=== PATIENT | female | born 1935 | race African-American/Black ===

== ENCOUNTER 2023-11-09 20:59 | Emergency (ER) | payer MEDICARE, OTHER ==
[~2023-11-09] VITALS: Ht 162.6 cm; Wt 63.5 kg
[2023-11-09 23:00] LABS: BASOPHILS # (AUTO) 0.1 K/uL (0.0-0.2); BASOPHILS % (AUTO) 1.1 % (0.0-2.0); EOSINOPHILS # (AUTO) 0.2 K/uL (0.0-0.7); HEMATOCRIT 40 % (33-45); LYMPHOCYTES # (AUTO) 1.9 K/uL (0.8-4.8); MEAN CORPUSCULAR HEMOGLOBIN 29 PG (26.0-33.0); MEAN CORPUSCULAR HGB CONC 32 g/dl (31.0-36.0); MEAN CORPUSCULAR VOLUME 90 fL (82-100); MONOCYTES # (AUTO) 0.6 K/uL (0.1-1.30); MONOCYTES % (AUTO) 12.6 % (2.0-12.0); NEUTROPHILS # (AUTO) 2.1 K/uL (1.8-8.9); NEUTROPHILS % (AUTO) 43.3 % (43.0-81.0); PLATELET COUNT (AUTO) 228 K/uL (150-450); RED BLOOD CELL COUNT(AUTO) 4.47 MIL/uL (4.0-5.2); RED CELL DISTRIBUTION WIDTH 14.9 % (11.5-15.0)
[2023-11-09 23:11] LABS: INR 1.51 (0.91-1.10); PARTIAL THROMBOPLASTIN TIME 36.7 SEC (24.3-34.3); PROTHROMBIN TIME 15.6 SECS (9.2-11.1)
[2023-11-09 23:19] LABS: CALCIUM, SERUM 8.6 mg/dL (8.5-10.1); CARBON DIOXIDE 26 mmol/L (21-32); CHLORIDE 108 mmol/L (98-107); CREATININE 0.9 mg/dL (0.6-1.3); GLUCOSE 99 mg/dL (74-106); POTASSIUM 3.8 mmol/L (3.5-5.1); SODIUM SERUM 141 mmol/L (136-145); UREA NITROGEN, BLOOD 18 mg/dL (7-18)
[2023-11-09 23:37] LABS: ALANINE AMINOTRANSFERASE 23 U/L (12-78); ALBUMIN 3.1 g/dL (3.4-5.0); ALKALINE PHOSPHATASE 157 U/L (46-116); ASPARTATE AMINOTRANSFERASE 19 U/L (15-37); BILIRUBIN,DIRECT 0.1 mg/dL (0.0-0.2); BILIRUBIN,TOTAL 0.3 mg/dL (0.2-1.0); NT-PRO BNP 353 pg/mL (0-125); TOTAL PROTEIN, SERUM 6.8 g/dL (6.4-8.2)
[2023-11-09 23:43] LABS: LACTIC ACID 1.2 mmol/L (0.4-2.0)
[2023-11-10] MEDS ORDERED: hydrALAZINE HCL IV 20 MG VIAL ONE (01:47)
[2023-11-10] MEDS: hydrALAZINE HCL IV 20 MG VIAL IV ONE (01:51)
[2023-11-10 03:43] VITALS: BP 177/90; TEMP 97.6; O2SAT 95
== END 2023-11-10 02:00 ==
LOC: ER 21:06
DX: S32.048A Other fracture of fourth lumbar vertebra, initial encounter for closed fracture (principal); R94.31 Abnormal electrocardiogram [ECG] [EKG]; R09.02 Hypoxemia; R10.9 Unspecified abdominal pain; R07.9 Chest pain, unspecified; I10 Essential (primary) hypertension; I25.2 Old myocardial infarction; F03.90 Unspecified dementia, unspecified severity, without behavioral disturbance, psychotic disturbance, mood disturbance, and anxiety; X58.XXXA Exposure to other specified factors, initial encounter; Y93.89 Activity, other specified; Y92.89 Other specified places as the place of occurrence of the external cause; Y99.8 Other external cause status
CPT/HCPCS: 99285; 74176; 71045; 87426; 93005; 87804 ×2; 85025; 80048; 87040; 83605; 80076; 36415 ×2; 84484 ×2; 85730; 83880; 96374; J0360

== ENCOUNTER 2024-11-03 12:03 | Inpatient (IN) | payer MEDICARE, OTHER ==
[~2024-11-03] VITALS: Ht 157.5 cm; Wt 76.3 kg
[2024-11-03 12:35] VITALS: O2SAT 97
[2024-11-03] MEDS: ALBUTEROL FS 2.5 MG/3 ML VIAL.NEB CONTNEB ONE (12:35)
[2024-11-03] MEDS: IPRATROPIUM NEB FS 0.5 MG/2.5 ML AMPUL.NEB NEB ONE (12:35)
[2024-11-03] MEDS ORDERED: ALBUTEROL FS 2.5 MG/3 ML VIAL.NEB ONE (12:43)
[2024-11-03] MEDS ORDERED: IPRATROPIUM NEB FS 0.5 MG/2.5 ML AMPUL.NEB ONE (12:43)
[2024-11-03 13:15] VITALS: O2SAT 98
[2024-11-03 13:47] LABS: PLATELET COUNT (AUTO) 224 K/uL (150-450); RED BLOOD CELL COUNT(AUTO) 4.73 MIL/uL (4.0-5.2); RED CELL DISTRIBUTION WIDTH 21.7 % (11.5-15.0); WHITE BLOOD COUNT (AUTO) 9.4 K/uL (4.3-11.0)
[2024-11-03 14:06] LABS: LACTIC ACID 1.9 mmol/L (0.4-2.0)
[2024-11-03 14:10] LABS: CALCIUM, SERUM 8.6 mg/dL (8.5-10.1); CREATININE 1.0 mg/dL (0.6-1.3); SODIUM SERUM 145 mmol/L (136-145); UREA NITROGEN, BLOOD 23 mg/dL (7-18)
[2024-11-03 14:15] LABS: ASPARTATE AMINOTRANSFERASE 24 U/L (15-37); TOTAL PROTEIN, SERUM 6.6 g/dL (6.4-8.2)
[2024-11-03] MEDS ORDERED: ASCO-352 PO (14:27)
[2024-11-03] MEDS ORDERED: ACET-868 PO (14:27)
[2024-11-03] MEDS ORDERED: MAGN400T30 PO (14:27)
[2024-11-03] MEDS ORDERED: AMLO10TA4 PO (14:27)
[2024-11-03] MEDS ORDERED: AMIN30LI2 PO (14:27)
[2024-11-03] MEDS ORDERED: EZET10TA16 PO (14:27)
[2024-11-03] MEDS ORDERED: FURO-144 PO (14:27)
[2024-11-03] MEDS ORDERED: APIX5TAB PO (14:27)
[2024-11-03] MEDS ORDERED: CARV12.5 PO (14:27)
[2024-11-03] MEDS ORDERED: HYDR-4076 PO (14:27)
[2024-11-03] MEDS ORDERED: LOSA25TA27 PO (14:27)
[2024-11-03] MEDS ORDERED: CALC500T53 PO (14:27)
[2024-11-03] MEDS ORDERED: HYDR-4209 PO (14:27)
[2024-11-03] MEDS ORDERED: DIVA125T32 PO (14:27)
[2024-11-03] MEDS ORDERED: DOCU100T2 PO (14:27)
[2024-11-03] MEDS ORDERED: IPRA3AMP22 IH (14:27)
[2024-11-03] MEDS ORDERED: L. A1TAB10 PO (14:27)
[2024-11-03] MEDS ORDERED: POLY17PO4 PO (14:27)
[2024-11-03] MEDS ORDERED: ROSU20TA2 PO (14:27)
[2024-11-03] MEDS ORDERED: CHOL100062 PO (14:27)
[2024-11-03] MEDS ORDERED: MULT-213 PO (14:27)
[2024-11-03] MEDS ORDERED: LEVA15HF4 IH (14:27)
[2024-11-03] MEDS ORDERED: SPIR25TA PO (14:27)
[2024-11-03] MEDS ORDERED: ONDANSETRON HCL/PF 4 MG/2 ML VIAL IVP PRN (15:00)
[2024-11-03] MEDS ORDERED: IPRATROPIUM NEB FS 0.5 MG/2.5 ML AMPUL.NEB NEB PRN (15:00)
[2024-11-03] MEDS ORDERED: ALBUTEROL FS 2.5 MG/0.5 ML VIAL.NEB NEB PRN (15:00)
[2024-11-03] MEDS ORDERED: HYDROCODONE/APAP 5/325MG TABLET PO PRN (15:00)
[2024-11-03] MEDS ORDERED: MAG HYDROX/AL HYDROX/SIMETH 30 ML UDC PO PRN (15:00)
[2024-11-03] MEDS ORDERED: ZOLPIDEM TARTRATE 5 MG TABLET PO PRN (15:00)
[2024-11-03] MEDS ORDERED: ACETAMINOPHEN 325 MG TABLET PO PRN (15:00)
[2024-11-03] MEDS ORDERED: MAGNESIUM HYDROXIDE 30 ML UDC PO PRN (15:00)
[2024-11-03] MEDS ORDERED: Z GUARD REMEDY 4 OZ OINT TP PRN (15:00)
[2024-11-03] MEDS: LEVOFLOXACIN (250MG) 250 MG TABLET PO SCH (16:10)
[2024-11-03] MEDS: ENOXAPARIN SODIUM 40 MG/0.4 ML DISP.SYRIN SQ SCH (16:11)
[2024-11-03 17:46] VITALS: BP 128/89; TEMP 98.1; O2SAT 96
[2024-11-03 18:00] VITALS: BP 140/98; TEMP 97.6; O2SAT 99
[2024-11-03 20:00] VITALS: BP 121/108; TEMP 97; TEMP 97.3; O2SAT 93
[2024-11-03 20:15] VITALS: BP 147/89; O2SAT 95
[2024-11-04] VITALS (9 sets, daily range): BP systolic 134–154; BP diastolic 80–96; TEMP 97.2–97.7; O2SAT 93–100
[2024-11-04] MEDS: PANTOPRAZOLE 40 MG TABLET.DR PO SCH (07:30)
[2024-11-04 10:34] LABS: ABG BASE EXCESS 1.7 mmol/L (-2.0-3.0); ABG OXYGEN SATURATION 90.9 % (94.0-98.0); ABG PCO2 45.4 mmHg (32.0-45.0); ABG PH 7.393 (7.350-7.450); ABG PO2 64.1 mmHg (83.0-108.0); ABG TOTAL HEMOGLOBIN 12.6 G/dL (12.0-16.0); FLOW, BLOOD GAS 3.00 L/min (0.00-30.00); FRACTIONATED INSPIRED OXYGEN 32.0 %; SITE, ABG RIGHT RADIAL
[2024-11-04] MEDS: APIXABAN 5 MG TABLET PO SCH (11:58)
[2024-11-04 12:34] LABS: CALCIUM, SERUM 8.7 mg/dL (8.5-10.1); CREATININE 1.1 mg/dL (0.6-1.3); PHOSPHORUS 4.6 mg/dL (2.5-4.9); SODIUM SERUM 149.0 mmol/L (136-145); UREA NITROGEN, BLOOD 30.0 mg/dL (7-18)
[2024-11-04 12:59] LABS: PLATELET COUNT (AUTO) 224 K/uL (150-450); RED BLOOD CELL COUNT(AUTO) 4.64 MIL/uL (4.0-5.2); RED CELL DISTRIBUTION WIDTH 21.5 % (11.5-15.0); WHITE BLOOD COUNT (AUTO) 6.3 K/uL (4.3-11.0)
[2024-11-04] MEDS: ALBUTEROL HALF STRENGTH 1.25 MG/3 ML VIAL.NEB NEB SCH (13:21)
[2024-11-04] MEDS: IPRATROPIUM NEB FS 0.5 MG/2.5 ML AMPUL.NEB NEB SCH (13:21)
[2024-11-04] MEDS: LEVOFLOXACIN 500 MG /D5W 100ML 100 ML IV SCH (17:14)
[2024-11-05] VITALS (14 sets, daily range): BP systolic 137–157; BP diastolic 70–106; TEMP 97.3–97.9; O2SAT 91–99
[2024-11-05] MEDS: IV 1/2NS 1000 ML 1,000 ML IV PRN (04:22)
[2024-11-05 08:04] LABS: PLATELET COUNT (AUTO) 253 K/uL (150-450); RED BLOOD CELL COUNT(AUTO) 4.65 MIL/uL (4.0-5.2); RED CELL DISTRIBUTION WIDTH 21.9 % (11.5-15.0); WHITE BLOOD COUNT (AUTO) 11.6 K/uL (4.3-11.0)
[2024-11-05 08:11] LABS: ASPARTATE AMINOTRANSFERASE 14.0 U/L (15-37); CALCIUM, SERUM 9.2 mg/dL (8.5-10.1); CREATININE 1.1 mg/dL (0.6-1.3); PHOSPHORUS 3.6 mg/dL (2.5-4.9); SODIUM SERUM 149.0 mmol/L (136-145); TOTAL PROTEIN, SERUM 6.4 g/dL (6.4-8.2); UREA NITROGEN, BLOOD 34.0 mg/dL (7-18)
[2024-11-05] MEDS: FUROSEMIDE 40 MG/4 ML VIAL IV SCH (09:52)
[2024-11-06] VITALS (10 sets, daily range): BP systolic 120–148; BP diastolic 84–98; TEMP 97.3–97.9; O2SAT 94–100
[2024-11-06 08:05] LABS: ASPARTATE AMINOTRANSFERASE 14.0 U/L (15-37); CALCIUM, SERUM 9.2 mg/dL (8.5-10.1); CREATININE 1.2 mg/dL (0.6-1.3); PHOSPHORUS 4.2 mg/dL (2.5-4.9); SODIUM SERUM 149.0 mmol/L (136-145); TOTAL PROTEIN, SERUM 6.4 g/dL (6.4-8.2); UREA NITROGEN, BLOOD 45.0 mg/dL (7-18)
[2024-11-06 08:27] LABS: PLATELET COUNT (AUTO) 269 K/uL (150-450); RED BLOOD CELL COUNT(AUTO) 4.81 MIL/uL (4.0-5.2); RED CELL DISTRIBUTION WIDTH 21.7 % (11.5-15.0); WHITE BLOOD COUNT (AUTO) 11.6 K/uL (4.3-11.0)
[2024-11-06] MEDS: AMLODIPINE BESYLATE 10 MG TABLET PO SCH (08:29)
[2024-11-06] MEDS: CARVEDILOL 12.5 MG TABLET PO SCH (08:29)
[2024-11-06] MEDS: SPIRONOLACTONE 25 MG TABLET PO SCH (08:29)
[2024-11-06] MEDS: DIVALPROEX SODIUM 125 MG TABLET.DR PO SCH (08:29)
[2024-11-06] MEDS: LEVOFLOXACIN 250 MG /D5W 50 ML 250 MG in PREMIX 1 EA IV SCH (15:49)
[2024-11-06] MEDS: ATORVASTATIN 40 MG TABLET PO SCH (21:15)
[2024-11-07] VITALS (10 sets, daily range): BP systolic 168–176; BP diastolic 78–91; TEMP 98–98.2; O2SAT 93–99
[2024-11-07 06:40] LABS: PLATELET COUNT (AUTO) 228 K/uL (150-450); RED BLOOD CELL COUNT(AUTO) 4.80 MIL/uL (4.0-5.2); RED CELL DISTRIBUTION WIDTH 21.1 % (11.5-15.0); WHITE BLOOD COUNT (AUTO) 8.9 K/uL (4.3-11.0)
[2024-11-07 06:42] LABS: CALCIUM, SERUM 8.4 mg/dL (8.5-10.1); CREATININE 1.1 mg/dL (0.6-1.3); SODIUM SERUM 152.0 mmol/L (136-145); UREA NITROGEN, BLOOD 47.0 mg/dL (7-18)
[2024-11-08] VITALS (9 sets, daily range): BP systolic 149–163; BP diastolic 79–95; TEMP 97.2–98.8; O2SAT 90–100
[2024-11-08] MEDS ORDERED: OLANZAPINE 5 MG TABLET PO PRN (11:00)
[2024-11-08 15:54] LABS: PLATELET COUNT (AUTO) 225 K/uL (150-450); RED BLOOD CELL COUNT(AUTO) 4.65 MIL/uL (4.0-5.2); RED CELL DISTRIBUTION WIDTH 20.8 % (11.5-15.0); WHITE BLOOD COUNT (AUTO) 7.9 K/uL (4.3-11.0)
[2024-11-08 16:07] LABS: CALCIUM, SERUM 8.6 mg/dL (8.5-10.1); CREATININE 1.2 mg/dL (0.6-1.3); SODIUM SERUM 143.0 mmol/L (136-145); UREA NITROGEN, BLOOD 43.0 mg/dL (7-18)
[2024-11-08] MEDS: OLANZAPINE 2.5 MG TABLET PO SCH (17:39)
[2024-11-08] MEDS: DIVALPROEX SODIUM 250 MG TABLET.DR PO SCH (17:39)
[2024-11-09] VITALS (8 sets, daily range): BP systolic 113–153; BP diastolic 63–90; TEMP 97.6–100.4; O2SAT 94–99
[2024-11-09] MEDS: CLONIDINE HCL 0.1 MG TABLET PO PRN (15:05)
[2024-11-09] MEDS: LEVOFLOXACIN (250MG) 250 MG TABLET PO SCH (16:30)
== END 2024-11-09 18:48 | DRG 291 ==
LOC: ER 12:09 → TELE 14:31 → MED 11-06 11:16
PROVIDERS: ATTEND Internal Medicine
DX: I11.0 Hypertensive heart disease with heart failure (principal); I50.33 Acute on chronic diastolic (congestive) heart failure; J96.01 Acute respiratory failure with hypoxia; J44.1 Chronic obstructive pulmonary disease with (acute) exacerbation; E44.0 Moderate protein-calorie malnutrition; E87.0 Hyperosmolality and hypernatremia; N17.9 Acute kidney failure, unspecified; J84.9 Interstitial pulmonary disease, unspecified; I42.9 Cardiomyopathy, unspecified; L85.3 Xerosis cutis; E66.9 Obesity, unspecified; E88.09 Other disorders of plasma-protein metabolism, not elsewhere classified; E78.5 Hyperlipidemia, unspecified; E86.1 Hypovolemia; Z79.01 Long term (current) use of anticoagulants; I48.0 Paroxysmal atrial fibrillation; I27.20 Pulmonary hypertension, unspecified; L89.156 Pressure-induced deep tissue damage of sacral region; I25.10 Atherosclerotic heart disease of native coronary artery without angina pectoris; Z68.30 Body mass index [BMI] 30.0-30.9, adult; Z20.822 Contact with and (suspected) exposure to COVID-19; L98.8 Other specified disorders of the skin and subcutaneous tissue; L25.9 Unspecified contact dermatitis, unspecified cause; F09 Unspecified mental disorder due to known physiological condition; F03.90 Unspecified dementia, unspecified severity, without behavioral disturbance, psychotic disturbance, mood disturbance, and anxiety; Z79.899 Other long term (current) drug therapy
CPT/HCPCS: 36415; 71045-TC; 71250-TC; 80048-TC; 80053-TC; 80076-TC; 83605-TC; 83735-TC; 83880; 84100-TC; 84484-TC; 85025-TC; 87040-TC; 87081-TC; 92526; 92611; 93307-TC; 93970-TC; 94760-TC; 94762-TC; 94799-TC; 97110-TC; 97116-TC; 97530-TC; A4216; A4223; G0378; J1650; J1938; J1956; J2919; J3490; J7050